=== PATIENT | female | born 1975 | race Caucasian/White ===

== ENCOUNTER → 2017-07-20 | Outpatient (CLI) | payer OTHER ==
[~2017-07-20] MED LIST: ACHD5005 PO; ASCO-262 PO; CPR500T PO; DCS100C PO; DULO60CA6 PO; IBP800T PO; MULT-963 PO; NCT21TD TD; POTA99TA7 PO
--- NOTE | 2017-07-20 20:34 | Diagnostic Imaging Report ---
EXAMINATION: Ultrasound of the right breast. INDICATION: Right breast pain. FINDINGS: By history, the patient has pain in the lateral aspect of the right breast. The diagnostic mammogram performed prior to this study failed to show any sign of malignancy or an acute abnormality. On this study, there is no discrete solid or cystic mass identified. The previous right breast ultrasound exam of 08/30/2015 was also unremarkable for a solid or cystic mass. IMPRESSION: There is no evidence for malignancy. There is no acute abnormality to account for the patient's pain either. Clinical follow-up is recommended. ACR BI-RADS Category 1: Negative. Dictated by: Dictated on workstation # [id number]
--- NOTE | 2017-07-21 12:34 | Diagnostic Imaging Report ---
EXAMINATION: Bilateral diagnostic mammogram INDICATION: Right breast pain This study was compared to prior exams of 08/30/2015 and 02/10/2013. At this time there are no current complaints aside from pain in the right breast. A marker was placed in the area of concern. The current study was also evaluated with a Computer Aided Detection (CAD) system. There is no primary or secondary sign of malignancy in this area. There is no abnormality to account for patient's pain either. The fibroglandular tissue in both breasts is heterogeneously dense. This does limit the sensitivity of this exam. When compared to the previous study there does not appear to have been any significant change. The small benign-appearing nodular densities in both breasts seen previously are again evident and no different. There is no primary or secondary sign of malignancy identified. IMPRESSION: There is no evidence of malignancy and there is no acute abnormality to account for patient's right breast pain. Ultrasound has been scheduled for further evaluation however. ACR BI-RADS Category 0: Incomplete. (Needs additional imaging evaluation). Result letter will be mailed to the patient. Note: At least 10% of breast cancer is not imaged by mammography. Dictated by: Dictated on workstation # [id number]
== END ==
LOC: RAD 12:54
PROVIDERS: ATTEND Nurse Practitioner Family
DX: N64.4 Mastodynia (principal)
CPT/HCPCS: 77066

== ENCOUNTER → 2020-02-10 | Outpatient (CLI) | payer OTHER ==
--- NOTE | 2020-02-10 12:27 | Diagnostic Imaging Report ---
INDICATION: Routine screening. Comparison is made with prior mammogram from 07/20/2017 08/30/2015. 2-D and 3-D bilateral screening mammography was performed with CAD. Scattered fibroglandular densities are identified bilaterally. There is a density in the retroareolar right breast on the MLO view and no definite correlate on the CC view is seen. Additional views are recommended. Left breast is unremarkable. No malignant appearing microcalcifications are seen. Axillae are unremarkable. IMPRESSION: BI-RADS 0 Right breast density. Additional views are recommended for further evaluation. Dictated by: Dictated on workstation # [id number]
== END ==
LOC: RAD 08:00
PROVIDERS: ATTEND Family Medicine
DX: Z12.31 Encounter for screening mammogram for malignant neoplasm of breast (principal)
CPT/HCPCS: 77063; 77067

== ENCOUNTER → 2020-03-21 | Outpatient (CLI) | payer OTHER ==
--- NOTE | 2020-03-21 14:22 | Diagnostic Imaging Report ---
INDICATION: Right breast density. Patient presents for additional views. COMPARISON: Recent screening study from 02/10/2020. TECHNIQUE: Unilateral right 2D and 3D diagnostic mammography was performed. This includes a repeat MLO view as well as spot compression ML and routine 90 degree lateral views. The area of nodularity in the retroareolar right breast has resolved with additional views. This most likely represented superimposed tissue. No mass or malignant appearing microcalcifications are seen. IMPRESSION: Additional views fail to demonstrate a discrete mass. The patient may return to routine annual screening mammography. ACR BI-RADS Category 1: Negative. Result letter will be mailed to the patient. Note: At least 10% of breast cancer is not imaged by mammography. Dictated by: Dictated on workstation # [id number]
== END ==
LOC: RAD 13:34
PROVIDERS: ATTEND Registered Nurse
DX: N64.4 Mastodynia (principal); N64.59 Other signs and symptoms in breast
CPT/HCPCS: 77065; G0279